=== PATIENT | female | born 1970 | race African-American/Black ===

== ENCOUNTER 2021-10-01 16:07 | Emergency (ER) | payer OTHER | END 2021-10-01 16:41 | disposition home or self-care (01) | LOC: BURERS 16:07 | DX: J06.9 Acute upper respiratory infection, unspecified (principal) | CPT/HCPCS: 99283 ==

== ENCOUNTER 2021-11-14 19:06 | Emergency (ER) | payer OTHER ==
[2021-11-15 16:56] LABS: SARS-CoV-2 PCR by NAA DETECTED (NotDetected)
== END 2021-11-14 19:34 | disposition home or self-care (01) ==
LOC: BURERS 19:06
DX: U07.1 COVID-19 (principal)
CPT/HCPCS: 87804; 99283; U0003; U0005